=== PATIENT | male | born 1985 | race Caucasian/White ===

== ENCOUNTER 2016-07-11 22:45 | Emergency (ER) | payer BC, OTHER ==
--- NOTE | 2016-07-12 01:40 | ER Document Report ---
ED Hand/Wrist Injury - General Chief Complaint: R index finger injury Stated Complaint: INJURIED RIGHT INDEX FINGER AT WORK Mode of Arrival: Ambulatory Information source: Patient TRAVEL OUTSIDE OF THE [place] IN LAST 30 DAYS: No - HPI Patient complains to provider of: right middle finger injury Notes: Patient arrives with complaints of pain at the MCP joint of the right middle finger. States he was picking up a bus stop at work when he felt a sudden pain in this joint. He states that now the area is bruised. States it hurts when he moves the area although he is able to completely flex and extend his finger. He denies any true wounds. He denies any numbness, tingling, weakness. He denies any nausea, vomiting, diarrhea. He denies any redness or fever. He denies any other injuries or complaints at this time. Past Medical History - General Information source: Patient - Social History Smoking Status: Unknown if Ever Smoked Family History: Reviewed & Not Pertinent Renal/ Medical History: Denies: Hx Peritoneal Dialysis Review of Systems - Review of Systems -: Yes All other systems reviewed and negative Physical Exam - Vital signs Vitals: Temp Pulse BP Pulse Ox 98.5 F 83 152/87 H 98 07/11/16 23:23 07/11/16 23:23 07/11/16 23:23 07/11/16 23:23 - Notes Notes: GENERAL: alert, cooperative, nontoxic, no distress. HEAD: normocephalic, atraumatic EYES: conjunctiva pink without discharge, no external redness or swelling. EARS: no external swelling, no external redness NOSE: atraumatic, no external swelling MOUTH/THROAT: mucous membranes moist and pink NECK: soft, supple, full range of motion, no meningismus. CHEST: no distress, lungs clear and equal throughout. No wheezing, rales, rhonchi. CARDIAC: regular rate and rhythm, no murmur, normal capillary refill, normal pulses. BACK: full range of motion, no CVA tenderness. EXTREMITIES: full range of motion of all extremities. Patient noted to have mild tenderness to palpation at the right MCP joint of the middle finger. There is slight bruising noted at this area. Patient's full flexion and extension with no sign of flexor tendon rupture. He has normal cap refill and sensation distally. The remainder of his [place] skull exam is completely normal. Normal pulse and sensation. NEURO: alert and oriented 3, no focal deficits, full range of motion of all extremities. PYSCH: appropriate mood, affect. Patient is cooperative. SKIN: pink, warm, dry, no rash. Course - Re-evaluation Re-evalutation: 07/12/16 01:37 Patient's nontoxic. Stable vitals. The patient states that he felt a sudden pain in the MCP joint of the right middle finger when he picked up a bus tub earlier at work. There is no puncture wound. There is no redness. There is slight bruising and tenderness of this area. He has full flexion of the finger with no sign of flexor tendon rupture. X-ray shows no acute fractures or foreign body. Patient will be discharged home with [facility]. Instructions to rest and ice the area. Follow-up if not better in one week, sooner for increased pain, fever, redness, decreased movement, or any further concerns. The patient is noted to have elevated blood pressure during today's emergency department visit. The patient was informed of this finding. The patient was instructed that this may be related to pre-hypertension and requires further evaluation with a primary care provider. The patient has no hypertensive symptoms at this time. The patient's emergency department workup and current diagnosis were explained to the patient and or family. Follow-up instructions were provided. Medications if prescribed were discussed. Instructions for when to return to the emergency department including specific worrisome symptoms were discussed with the patient and/or family. - Vital Signs Vital signs: Temp Pulse Resp BP Pulse Ox 98.5 F 83 152/87 H 98 07/11/16 23:23 07/11/16 23:23 07/11/16 23:23 07/11/16 23:23 - Diagnostic Test Radiology reviewed: Image reviewed - No acute fracture of the right middle finger, no foreign body Discharge - Discharge Clinical Impression: Sprain of finger of right hand Qualifiers: Encounter type: initial encounter Qualified Code(s): S63.619A - Unspecified sprain of unspecified finger, initial encounter Condition: Stable Disposition: HOME, SELF-CARE Instructions: Sprained Finger ([facility]) Additional Instructions: Take medications as prescribed. Rest and ice her injury. Follow-up with not better in one week, sooner for increased pain, fever, redness, decreased movement, or any further concerns. Your blood pressure was elevated during today's visit. Have this rechecked with your doctor. Prescriptions: Diclofenac Sodium [Voltaren] 75 mg PO BID #20 tablet.dr Forms: Elevated Blood Pressure Referrals: MAYNOR GAYTAN DO [ACTIVE STAFF] - Follow up as needed
[2016-07-12 02:15] VITALS: BP 131/90
== END 2016-07-12 02:13 | disposition home or self-care (01) ==
LOC: ER 22:45
DX: S63.610A Unspecified sprain of right index finger, initial encounter (principal); X58.XXXA Exposure to other specified factors, initial encounter; Y93.89 Activity, other specified; Y99.0 Civilian activity done for income or pay; R03.0 Elevated blood-pressure reading, without diagnosis of hypertension
CPT/HCPCS: 99283